=== PATIENT | male | born 1955 | race Caucasian/White ===

== ENCOUNTER 2023-05-31 11:14 | Emergency (ER) | payer MEDICARE, BC ==
[2023-05-31 11:59] LABS: ALBUMIN 3.6 g/dL (3.4-5.0); BILIRUBIN TOTAL 2.3 mg/dL (0.0-1.0); CALCIUM 8.9 mg/dL (8.4-10.1); CREATININE 1.2 mg/dL (0.7-1.3); EST CRCL DRUG DOSING (CG) 62.52 mL/min; POTASSIUM,K 3.7 mEq/L (3.5-5.0); PROTEIN TOTAL,TP 7.5 g/dL (6.4-8.2)
[2023-05-31] MEDS: Polyethylene Glycol 3350 Powder 17 GM Packet ONE (12:43)
== END 2023-05-31 12:57 | disposition home or self-care (01) ==
LOC: CC.ED 11:14
DX: M79.662 Pain in left lower leg (principal); R79.1 Abnormal coagulation profile; E78.00 Pure hypercholesterolemia, unspecified; Z79.82 Long term (current) use of aspirin; Z79.899 Other long term (current) drug therapy; Z91.048 Other nonmedicinal substance allergy status
CPT/HCPCS: 36415; 80053; 85025; 85379; 99284

== ENCOUNTER 2025-04-07 06:28 | Emergency (ER) | payer MEDICARE, BC ==
[2025-04-07] MEDS: Aspirin 81 MG Tab.Chew PO ONE (06:44)
[2025-04-07 07:10] LABS: ALBUMIN 3.5 g/dL (3.4-5.0); BILIRUBIN TOTAL 1.7 mg/dL (0.0-1.0); CALCIUM 8.5 mg/dL (8.4-10.1); CREATININE 1.2 mg/dL (0.7-1.3); EST CRCL DRUG DOSING (CG) 60.83 mL/min; MAGNESIUM 1.9 mg/dL (1.8-2.4); PROTEIN TOTAL,TP 7.1 g/dL (6.4-8.2)
[2025-04-07 07:15] LABS: BASOPHILS ABSOLUTE AUTO 0.03 10^3/uL (0.00-0.50); BASOPHILS PERCENT AUTO 0.5 % (0-1); EOSINOPHILS ABSOLUTE AUTO 0.57 10^3/uL (0.00-1.50); EOSINOPHILS PERCENT AUTO 9.4 % (0-6); HEMATOCRIT 40.6 % (42.0-52.0); HEMOGLOBIN 13.9 g/dL (14.0-18.0); IMMATURE GRAN ABSOLUTE AUTO 0.01 10^3/uL (0.00-0.49); IMMATURE GRAN PERCENT AUTO 0.2 % (0.0-4.9); LYMPHOCYTES ABSOLUTE AUTO 1.19 10^3/uL (0.60-5.00); LYMPHOCYTES PERCENT AUTO 19.6 % (24-44); MEAN CORPUSCULAR HEMOGLOBIN 30.2 pg (27.0-32.0); MEAN CORPUSCULAR HGB CONC 34.2 g/dL (32.0-36.0); MEAN CORPUSCULAR VOLUME 88.3 fL (83.0-97.0); MONOCYTES ABSOLUTE AUTO 0.58 10^3/uL (0.00-1.50); MONOCYTES PERCENT AUTO 9.5 % (0-10); NEUTROPHILS PERCENT AUTO 60.8 % (41-71); PLATELET COUNT,PLT 136 10^3/uL (150-400); WHITE BLOOD CELL COUNT,WBC 6.1 10^3/uL (4.0-11.0)
== END 2025-04-07 09:17 | disposition home or self-care (01) ==
LOC: CC.ED 06:28
DX: R07.9 Chest pain, unspecified (principal); E78.00 Pure hypercholesterolemia, unspecified; Z79.82 Long term (current) use of aspirin; Z79.01 Long term (current) use of anticoagulants; Z79.899 Other long term (current) drug therapy
CPT/HCPCS: 36415; 71045; 80053; 82550; 83615; 83690; 83735; 84484; 85025; 85730; 86140; 93005; 99285; A9270-GY